=== PATIENT | female | born 1985 | race Caucasian/White ===

== ENCOUNTER 2016-09-21 18:57 | Emergency (ER) | payer OTHER ==
[~2016-09-21] VITALS: Ht 158.8 cm; Wt 86.4 kg
[~2016-09-21 18:57] MED LIST: ALBU18HF INH; DOCO200C5 PO; QUET100T PO; QUET50TA PO
[2016-09-21 18:58] VITALS: BP 153/103; PULSE 116; RESP 20; O2SAT 99
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
[2016-09-21] MEDS ORDERED: OLAN5TAB PO (19:42)
== END 2016-09-21 21:52 ==
LOC: SED 18:57
DX: F43.0 Acute stress reaction (principal); F32.9 Major depressive disorder, single episode, unspecified; F15.10 Other stimulant abuse, uncomplicated; F31.9 Bipolar disorder, unspecified; F17.200 Nicotine dependence, unspecified, uncomplicated; Z88.0 Allergy status to penicillin